=== PATIENT | female | born 1955 | race Caucasian/White ===

== ENCOUNTER → 2018-09-12 | Outpatient (CLI) | payer OTHER, SELFPAY ==
[2018-09-11 10:25] VITALS: BMI 38.0
[2018-09-12 12:02] LABS: Absolute Lymphocyte Count 2.69 X10^3/ul (0.83-4.51); Absolute Neutrophil Count 3.4 X10^3/uL (2.0-7.7); Basophil# 0.03 X10^3/uL; Basophil% 0.4 % (0-1); Eosinophil# 0.13 X10^3/uL; Eosinophils% 1.9 % (0-5); Hematocrit 43.4 % (37-47); Hemoglobin 14.1 g/dl (12.0-15.0); Lymphocyte # 2.69 X10^3/ul (4.0); Lymphocyte % 39.1 % (19-41); Mean Corp Hgb Conc 32.5 g/gl (32-36); Mean Corpuscular Hgb 28.7 pg (27.0-32.0); Mean Corpuscular Volume 88.2 fL (81-99); Mean Platelet Vol. 10.7 fl (6.2-12.0); Monocyte% 8.7 % (0-10); Neutrophil # 3.41 X10^3/uL (2.7-7.7); Neutrophil % 49.6 % (47-70); Platelet Count 244 K/mm3 (150-450); RBC Distribution Width SD 41.6 fl (35.1-43.9); Red Blood Count 4.92 M/mm3 (4.2-5.4); White Blood Count 6.9 K/mm3 (4.4-11.0)
[2018-09-12 12:10] LABS: POSITIVE COUNT NO; POSITIVE DIFFERENTIAL NO; POSITIVE MORPHOLOGY NO
[2018-09-12 12:31] LABS: ALB/GLOB Ratio 0.9 RATIO (0.9-2.4); AST(SGOT) 44 U/L (15-37); Alanine Aminotransfer ALT/SGPT 70 U/L (13-56); Albumin, Serum 3.7 g/dL (3.2-5.0); Alkaline Phosphatase 68 U/L (45-117); Anion Gap 5 (5-15); BUN 16 mg/dL (7-18); BUN/Creat Ratio 19.8 RATIO (10-20); Calcium,Total 8.9 mg/dL (8.5-10.1); Chloride 104 mmol/L (98-107); Cholesterol 159 mg/dL (200); Creatinine, Serum 0.81 mg/dL (0.55-1.02); EST Glomerular Filtration Rate 76 mL/min (>60); Est Glom Filt Rate - Afr Amer 92 mL/min (>60); Globulin 3.9 g/dL (2.2-4.2); Glucose 234 mg/dL (74-106); Protein, Total 7.6 g/dL (6.4-8.2); Sodium Level 138 mmol/L (136-145); Triglycerides 162 mg/dL; Very Low Density Lipoprotein 32 mg/dL (5-40)
[2018-09-12 12:32] LABS: High Density Lipoprotein 44 mg/dL
[2018-09-12 12:45] LABS: Microalbumin,Random Urine 35.3 mg/L (NO RANGE EST.)
[2018-09-12 14:04] LABS: Hemoglobin A1c 8.2 % (4.2-6.3)
== END | disposition home or self-care (01) ==
LOC: BIMLAB 08:30
PROVIDERS: Family Provider Internal Medicine; PCP Internal Medicine; Visit Provider Internal Medicine
DX: E11.9 Type 2 diabetes mellitus without complications (principal)
CPT/HCPCS: 36415; 80053; 80061; 82043; 82570; 83036; 85025

== ENCOUNTER → 2018-09-15 | Outpatient (CLI) | payer OTHER, SELFPAY ==
[2018-09-11 10:25] VITALS: BMI 38.0
--- NOTE | 2018-09-15 08:01 | US_ITS ---
STUDY: ABDOMINAL ULTRASOUND - RIGHT UPPER QUADRANT REASON FOR VISIT: Female, 63 years old. Fatty liver. TECHNIQUE: Ultrasound evaluation of the right upper quadrant was performed with real-time and static hernandez-scale imaging. TECHNICAL QUALITY: Limited. Examination limited due to obesity. COMPARISON: Report only of ultrasound of the liver performed March 11, 2015 demonstrating fatty infiltration of the liver. FINDINGS: Liver: The liver measures 15.8 cm. There is increased echogenicity consistent with fatty infiltration. The bile ducts are within normal limits. There is hepatic color flow. The direction of portal flow is hepatopetal. There is no demonstrated mass lesion. Gallbladder: Normal distended gallbladder. The gallbladder wall measures 2.6 mm. There is a negative sonographic Joyce's sign. There is no pericholecystic fluid. There are no gallstones. Common Bile Duct (C.B.D.): The common bile duct measures 4.7 mm. Pancreas: Normal size of the head, body and tail of the pancreas. There is normal echogenicity of the pancreas. There is no demonstrated pancreatic mass or cyst. Right Kidney: Normal size of the right kidney. The right kidney measures 13.5 x 6.8 x 4.3 cm. Normal renal cortex. The right cortex measures 1.2 cm. There is no demonstrated renal mass or cyst. There is no right hydronephrosis. US/Liver IMPRESSION: There is diffuse increased hepatic echogenicity without sonographically evident discrete mass or cyst. This is a nonspecific finding, however most often due to fatty infiltration. Technically limited exam secondary to patient body habitus. Electronically Signed: Mathieu Grande MD at 14:00 EDT , Service support ,
== END | disposition home or self-care (01) ==
PROVIDERS: Family Provider Internal Medicine; PCP Internal Medicine; Referring Provider Internal Medicine; Visit Provider Internal Medicine
DX: K76.0 Fatty (change of) liver, not elsewhere classified (principal)
CPT/HCPCS: 76705

== ENCOUNTER → 2018-12-07 | Outpatient (CLI) | payer OTHER, SELFPAY ==
[2018-09-11 10:25] VITALS: BMI 38.0
[2018-12-07 12:29] LABS: ALB/GLOB Ratio 1.1 RATIO (0.9-2.4); AST(SGOT) 36 U/L (15-37); Alanine Aminotransfer ALT/SGPT 65 U/L (13-56); Albumin, Serum 3.7 g/dL (3.2-5.0); Alkaline Phosphatase 72 U/L (45-117); Anion Gap 7 (5-15); BUN 16 mg/dL (7-18); BUN/Creat Ratio 21.9 RATIO (10-20); Calcium,Total 8.6 mg/dL (8.5-10.1); Chloride 106 mmol/L (98-107); Creatinine, Serum 0.73 mg/dL (0.55-1.02); EST Glomerular Filtration Rate 86 mL/min (>60); Est Glom Filt Rate - Afr Amer 104 mL/min (>60); Globulin 3.4 g/dL (2.2-4.2); Glucose 204 mg/dL (74-106); Potassium 4.6 mmol/L (3.5-5.1); Protein, Total 7.1 g/dL (6.4-8.2); Sodium Level 141 mmol/L (136-145)
[2018-12-07 12:41] LABS: Hemoglobin A1c 7.8 % (4.2-6.3)
== END | disposition home or self-care (01) ==
LOC: BIMLAB 08:40
PROVIDERS: Nurse Practitioner Family; Family Provider Internal Medicine; PCP Internal Medicine; Visit Provider Internal Medicine
DX: E11.9 Type 2 diabetes mellitus without complications (principal)
CPT/HCPCS: 36415; 80053; 83036

== ENCOUNTER → 2019-03-16 08:22 | Outpatient (CLI) | payer OTHER, SELFPAY ==
[2019-03-12 08:17] VITALS: BMI 38.0
--- NOTE | 2019-03-16 08:24 | EKG12_ITS ---
Test Reason : Blood Pressure : / mmHG Vent. Rate : 084 BPM Atrial Rate : 084 BPM P-R Int : 124 ms QRS Dur : 084 ms QT Int : 366 ms P-R-T Axes : 053 028 050 degrees QTc Int : 432 ms Normal sinus rhythm Normal ECG Confirmed by RIOS MOHAMUD, LANA ([id number]), news videotape editor MARLA BENNETT ([id number]) on 03/19/2019 9:42:22 AM Referred By: Dalia Yuan Confirmed By:LANA NATION MD
== END ==
PROVIDERS: Family Provider Internal Medicine; PCP Internal Medicine; Referring Provider Internal Medicine; Visit Provider Internal Medicine
DX: E11.9 Type 2 diabetes mellitus without complications (principal)
CPT/HCPCS: 93005

== ENCOUNTER → 2019-04-17 07:49 | Outpatient (CLI) | payer OTHER, SELFPAY ==
[2019-03-12 08:17] VITALS: BMI 38.0
[2019-04-09 10:44] VITALS: BMI 38.0
--- NOTE | 2019-04-17 07:51 | BI_ITS ---
MAMMOGRAPHY - BILATERAL SCREENING REASON FOR EXAM: Female, 63 years old. Routine annual screening examination. PERTINENT HISTORY: Sister with breast cancer. History of bilateral breast reduction surgery. TECHNIQUE: Digital bilateral breast maxine (3D mammographic acquisition) in the CC and MLO projections. 2-D mediolateral oblique (MLO) and craniocaudad (CC) views of both breasts were obtained. CAD: Full Field Digital Mammography with Computer Added Detection was performed. COMPARISON: Comparison is made with prior operative examination dated April 14, 2018. FINDINGS: Breast Composition: There are scattered areas of fibroglandular density. There are no dominant masses or suspicious calcifications. There is a 9 mm x 9 mm well-defined nodule in the retroareolar region of the left breast. This appears to have a central lucency suggestive of a small lymph node. This is unchanged. Correlation with ultrasound is recommended. No other significant abnormalities are identified. There has been no significant change since the prior study. BI/SCREEN MAMM (CAD) W/MAXINE BILAT IMPRESSION: Stable bilateral screening mammogram. Ultrasound of the left retroareolar nodular density is recommended for further evaluation. ASSESSMENT CATEGORY: BIRADS Category 0: Incomplete. Need additional imaging evaluation. A letter regarding these results will be sent to the patient by the facility within 30 days. Approximately 10% of breast cancers are not detected by mammography. A normal mammogram should not delay biopsy of a clinically suspicious abnormality. [id number] Electronically Signed: Ruebn Cuevas, at 13:10 EST , Service support ,
== END ==
PROVIDERS: Family Provider Internal Medicine; PCP Internal Medicine; Referring Provider Internal Medicine; Visit Provider Internal Medicine
DX: Z12.31 Encounter for screening mammogram for malignant neoplasm of breast (principal)
CPT/HCPCS: 77063; 77067

== ENCOUNTER → 2019-05-01 07:48 | Outpatient (CLI) | payer OTHER, SELFPAY ==
[2019-04-09 10:44] VITALS: BMI 38.0
--- NOTE | 2019-05-01 07:49 | US_ITS ---
STUDY: ULTRASOUND BREAST - LEFT REASON FOR EXAM: Female, 63 years old. Abnormal screening mammogram. TECHNIQUE: Axial and longitudinal images of the LEFT breast were performed with a high resolution ultrasound transducer. # OF IMAGES: 36 COMPARISON: Comparison is made with prior mammogram dated April 17, 2019. FINDINGS: LEFT Breast: In the retroareolar region of the left breast, there is an 8 mm x 8 mm x 4 mm slightly indistinct hypoechoic nodule. A biopsy is recommended for further evaluation. US/Breast Limited Unilateral IMPRESSION: There is an 8mm by 8mm by 4 mm slightly irregular hypoechoic nodule in the retroareolar region of the left breast. A biopsy is recommended for further evaluation. ASSESSMENT CATEGORY: BIRADS Category 4: Suspicious - Biopsy Should Be Considered. A letter regarding these results will be sent to the patient by the facility within 30 days. Electronically Signed: Ruben Cuevas, at 14:28 EST , Service support ,
== END ==
PROVIDERS: Family Provider Internal Medicine; PCP Internal Medicine; Referring Provider Internal Medicine; Visit Provider Internal Medicine
DX: N63.42 Unspecified lump in left breast, subareolar (principal)
CPT/HCPCS: 76642

== ENCOUNTER → 2019-05-11 12:17 | Outpatient (CLI) | payer OTHER, SELFPAY ==
[2019-05-04 09:11] VITALS: BMI 38.0
--- NOTE | 2019-05-11 12:17 | US_ITS ---
STUDY: ULTRASOUND BREAST - LEFT REASON FOR EXAM: Female, 64 years old. Left breast ultrasound of biopsy of left breast lesion. TECHNIQUE: Axial and longitudinal images of the LEFT breast were performed with a high resolution ultrasound transducer. # OF IMAGES: 24 COMPARISON: Left breast ultrasound dated May 01, 2019. FINDINGS: LEFT Breast: Ultrasound guidance was provided for Dr. De Jesus from to perform the biopsy. After the first pass, the lesion disappeared and most likely represented a cyst. A clip was left at the 6:00 position 2 cm from the nipple. US/US Breast Biopsy 1st Lesion IMPRESSION: Lesion which disappeared after initial first biopsy pass. ASSESSMENT CATEGORY: BIRADS Category 2: Benign. A letter regarding these results will be sent to the patient by the facility within 30 days. Electronically Signed: Rudy Gonzalez MD at 13:13 EST , Service support ,
--- NOTE | 2019-05-11 13:00 | BRBX_PTH ---
PATIENT: CONNER LARSEN LOC: OPUS U#:[id number] AGE/SX: 69/F ROOM: RE05/11/[address]: Dr. Elvira Puentes MD : [id number] BED: DIS: SPEC #: [id number] RECD: 05/11/19 13:46 STATUS: SANDRINE REQ #: [id number] SAAD: 05/11/19 13:[address]: Elvira Puentes DEPT: SURGICAL PATHOLOGY RECD BY: Elaine Cool ENTERED: 05/11/19 14:11 SP TYPE: BREAST BX OTHR DR: Dr. Dalia Yuan MD Tissues: Left breast, NOS Procedures: Surgery Specimen Level IV HEADER OPERATION: Left breast biopsy PRE-OP DIAGNOSIS: Left breast nodule TISSUE SUBMITTED: Left breast nodule ISCHEMIC TIME: 1 minute FIXATION TIME: 55 hours MICROSCOPIC DIAGNOSIS Left breast nodule, core biopsy: Fibrocystic change with associated focal microcalcifications. No evidence of malignancy. AM:andrew 05/14/19 MICROSCOPIC DESCRIPTION Slides are reviewed. GROSS DESCRIPTION Received in fixative is one container labeled with the patient's name and designated left breast nodule. The specimen consists of multiple irregular and elongated fragments of hubbard-yellow soft tissue that in aggregate measure 2 x 1.5 x 0.1 cm. The specimen is totally submitted in one cassette. / AM:andrew 05/11/19 TC:5 CPT: 05568
--- NOTE | 2019-05-11 13:04 | OP.PCM_ITS ---
Report of Operation Date of Procedure: 05/11/19 Pre-Operative Diagnosis: Left breast mass Post-Operative Diagnosis: Same Surgery/Procedure Performed:: Ultrasound-guided left breast biopsy Type of Anesthesia:: Local Specimen's removed: Left breast mass Estimated Blood Loss (mL): minimal Description of Procedure: Procedure: ultrasound-guided core biopsy Indications: 64 year-old female with hypoechoic nodule at 6 o'clock in the left breast 2 centimeters from the nipple. Risk benefits were discussed the patient and she elected to proceed with ultrasound guided core biopsy with clip placement Description of procedure: Patient was brought into the ultrasound room in the left breast was marked. A timeout was completed verifying correct patient, procedure, site, specially, prior to beginning procedure. The left breast was prepped and draped in usual sterile fashion and using local anesthesia was obtained with 1% lidocaine with epi. The lesion was located with the ultrasound. Small incision was made with 11 blade to introduced the mammotome through the skin. Under ultrasound guidance multiple core samples were obtained using then 13-gauge mammotome and sent in formalin for pathology. The mammotome mammostar clip was then deployed into the biopsy cavity under ultrasound guidance and a picture was taken. Upon completion procedure hemostasis was obta ined and a Steri-Strip and OpSite were placed. Patient was then taken to the mammography suite for clip verification. The clip was verified. The patient tolerated the procedure well and was discharged from the breast imaging department good condition. complications: none - Complications none
== END ==
PROVIDERS: Family Provider Internal Medicine; PCP Internal Medicine; Referring Provider Surgery; Visit Provider Surgery
DX: N63.20 Unspecified lump in the left breast, unspecified quadrant (principal)
CPT/HCPCS: 19083; 88305

== ENCOUNTER → 2019-06-28 08:47 | Outpatient (CLI) | payer OTHER, SELFPAY ==
[2019-05-04 09:11] VITALS: BMI 38.0
[2019-06-28 12:53] LABS: Hemoglobin A1c 7.7 % (4.2-6.3)
[2019-06-28 12:58] LABS: Microalbumin,Random Urine 31.6 mg/L (NO RANGE EST.); Microalbumin:Creatinine Ratio 20.7 mg/g CRE (<30 mg/g CRE)
[2019-06-28 12:59] LABS: AST(SGOT) 36 U/L (15-37); Alanine Aminotransfer ALT/SGPT 68 U/L (13-56); Albumin, Serum 3.7 g/dL (3.2-5.0); Alkaline Phosphatase 73 U/L (45-117); Anion Gap 5 (5-15); BUN 14 mg/dL (7-18); BUN/Creat Ratio 16.9 RATIO (10-20); Calcium,Total 9.8 mg/dL (8.5-10.1); Chloride 106 mmol/L (98-107); Creatinine, Serum 0.83 mg/dL (0.55-1.02); EST Glomerular Filtration Rate 74 mL/min (>60); Est Glom Filt Rate - Afr Amer 89 mL/min (>60); Globulin 3.7 g/dL (2.2-4.2); Glucose 198 mg/dL (74-106); Potassium 4.8 mmol/L (3.5-5.1); Protein, Total 7.4 g/dL (6.4-8.2); Sodium Level 139 mmol/L (136-145)
== END ==
PROVIDERS: PCP Internal Medicine; Referring Provider Internal Medicine; Visit Provider Internal Medicine
DX: E11.9 Type 2 diabetes mellitus without complications (principal)
CPT/HCPCS: 36415; 80053; 82043; 82570; 83036

== ENCOUNTER → 2019-09-28 | Outpatient (CLI) | payer OTHER, SELFPAY ==
[2019-07-02 10:05] VITALS: BMI 38.0
[2019-09-28 11:12] LABS: Absolute Lymphocyte Count 3.42 X10^3/uL (0.83-4.51); Absolute Neutrophil Count 3.5 X10^3/uL (2.0-7.7); Basophil# 0.06 X10^3/uL; Basophil% 0.8 % (0-1); Eosinophil# 0.12 X10^3/uL; Eosinophils% 1.6 % (0-5); Hematocrit 41.6 % (37-47); Hemoglobin 13.6 g/dL (12.0-15.0); Lymphocyte # 3.42 X10^3/ul (4.0); Lymphocyte % 44.2 % (19-41); Mean Corp Hgb Conc 32.7 g/dL (32-36); Mean Corpuscular Hgb 29.8 pg (27.0-32.0); Mean Corpuscular Volume 91.2 fL (81-99); Mean Platelet Vol. 10.4 fl (6.2-12.0); Monocyte# 0.57 X10^3/uL; Monocyte% 7.4 % (0-10); NRBC Flagged by Analyzer 0 % (0-5); Neutrophil # 3.53 X10^3/uL (2.7-7.7); Neutrophil % 45.5 % (47-70); Platelet Count 228 K/mm3 (150-450); RBC Distribution Width CV 12.3 % (11.6-14.6); Red Blood Count 4.56 M/mm3 (4.2-5.4); White Blood Count 7.7 K/mm3 (4.4-11.0)
[2019-09-28 11:30] LABS: ALB/GLOB Ratio 0.9 RATIO (0.9-2.4); AST(SGOT) 46 U/L (15-37); Alanine Aminotransfer ALT/SGPT 82 U/L (13-56); Albumin, Serum 3.6 g/dL (3.2-5.0); Alkaline Phosphatase 76 U/L (45-117); Anion Gap 7 (5-15); BUN 15 mg/dL (7-18); Calcium,Total 9.1 mg/dL (8.5-10.1); Chloride 106 mmol/L (98-107); Cholesterol 154 mg/dL (200); Creatinine, Serum 0.79 mg/dL (0.55-1.02); EST Glomerular Filtration Rate 78 mL/min (>60); Est Glom Filt Rate - Afr Amer 95 mL/min (>60); Globulin 3.8 g/dL (2.2-4.2); Glucose 210 mg/dL (74-106); High Density Lipoprotein 46 mg/dL; Potassium 4.8 mmol/L (3.5-5.1); Protein, Total 7.4 g/dL (6.4-8.2); Sodium Level 141 mmol/L (136-145); Triglycerides 150 mg/dL; Very Low Density Lipoprotein 30 mg/dL (5-40)
[2019-09-28 12:05] LABS: Hemoglobin A1c 8.4 % (4.2-6.3)
== END | disposition home or self-care (01) ==
LOC: LABSPEC 10:41
PROVIDERS: PCP Internal Medicine; Referring Provider Internal Medicine; Visit Provider Internal Medicine
DX: E11.9 Type 2 diabetes mellitus without complications (principal); K76.0 Fatty (change of) liver, not elsewhere classified; J45.909 Unspecified asthma, uncomplicated
CPT/HCPCS: 80053; 80061; 83036; 85025

== ENCOUNTER → 2020-01-07 09:07 | Outpatient (CLI) | payer OTHER, SELFPAY ==
[2020-01-07 08:23] VITALS: BMI 38.0
[2020-01-07 12:34] LABS: ALB/GLOB Ratio 0.9 RATIO (0.9-2.4); AST(SGOT) 50 U/L (15-37); Alanine Aminotransfer ALT/SGPT 72 U/L (13-56); Albumin, Serum 3.7 g/dL (3.2-5.0); Alkaline Phosphatase 83 U/L (45-117); Anion Gap 6 (5-15); BUN 12 mg/dL (7-18); BUN/Creat Ratio 17.4 RATIO (10-20); Calcium,Total 9.3 mg/dL (8.5-10.1); Chloride 105 mmol/L (98-107); Creatinine, Serum 0.69 mg/dL (0.55-1.02); EST Glomerular Filtration Rate 91 mL/min (>60); Est Glom Filt Rate - Afr Amer 110 mL/min (>60); Globulin 3.9 g/dL (2.2-4.2); Glucose 211 mg/dL (74-106); Potassium 4.5 mmol/L (3.5-5.1); Protein, Total 7.6 g/dL (6.4-8.2); Sodium Level 138 mmol/L (136-145)
[2020-01-07 12:57] LABS: Microalbumin:Creatinine Ratio 27.6 mg/g CRE (<30 mg/g CRE)
== END ==
PROVIDERS: PCP Internal Medicine; Visit Provider Internal Medicine
DX: E11.9 Type 2 diabetes mellitus without complications (principal); K76.0 Fatty (change of) liver, not elsewhere classified
CPT/HCPCS: 36415; 80053; 82043; 82570

== ENCOUNTER → 2020-03-25 17:23 | Outpatient (CLI) | payer OTHER, SELFPAY ==
[2020-01-07 08:23] VITALS: BMI 38.0
== END ==
PROVIDERS: PCP Internal Medicine; Referring Provider Nurse Practitioner Family; Visit Provider Nurse Practitioner Family
DX: U07.1 COVID-19 (principal); R05 Cough
CPT/HCPCS: 87635; C9803; U0003

== ENCOUNTER → 2020-04-29 09:00 | Outpatient (CLI) | payer OTHER, SELFPAY ==
[2020-04-29 12:20] LABS: Absolute Lymphocyte Count 3.16 X10^3/uL (0.83-4.51); Absolute Neutrophil Count 3.7 X10^3/uL (2.0-7.7); Basophil# 0.04 X10^3/uL; Basophil% 0.5 % (0-1); Eosinophil# 0.12 X10^3/uL; Eosinophils% 1.6 % (0-5); Hematocrit 44.3 % (37-47); Hemoglobin 13.8 g/dL (12.0-15.0); Lymphocyte # 3.16 X10^3/ul (4.0); Lymphocyte % 41.5 % (19-41); Mean Corp Hgb Conc 31.2 g/dL (32-36); Mean Corpuscular Hgb 28.8 pg (27.0-32.0); Mean Corpuscular Volume 92.3 fL (81-99); Mean Platelet Vol. 10.6 fl (6.2-12.0); Monocyte# 0.56 X10^3/uL; Monocyte% 7.3 % (0-10); NRBC Flagged by Analyzer 0 % (0-5); Neutrophil % 48.6 % (47-70); Platelet Count 259 K/mm3 (150-450); RBC Distribution Width CV 13.2 % (11.6-14.6); RBC Distribution Width SD 44.5 fl (35.1-43.9); White Blood Count 7.6 K/mm3 (4.4-11.0)
[2020-04-29 12:33] LABS: ALB/GLOB Ratio 0.9 RATIO (0.9-2.4); AST(SGOT) 54 U/L (15-37); Alanine Aminotransfer ALT/SGPT 73 U/L (13-56); Albumin, Serum 3.7 g/dL (3.2-5.0); Alkaline Phosphatase 83 U/L (45-117); Anion Gap 5 (5-15); BUN 14 mg/dL (7-18); Calcium,Total 9.5 mg/dL (8.5-10.1); Chloride 106 mmol/L (98-107); Creatinine, Serum 0.82 mg/dL (0.55-1.02); EST Glomerular Filtration Rate 74 mL/min (>60); Est Glom Filt Rate - Afr Amer 90 mL/min (>60); Globulin 4.2 g/dL (2.2-4.2); Glucose 215 mg/dL (74-106); Potassium 4.9 mmol/L (3.5-5.1); Protein, Total 7.9 g/dL (6.4-8.2); Sodium Level 138 mmol/L (136-145)
== END ==
PROVIDERS: PCP Internal Medicine; Referring Provider Internal Medicine; Visit Provider Internal Medicine
DX: E11.9 Type 2 diabetes mellitus without complications (principal)
CPT/HCPCS: 36415; 80053; 85025

== ENCOUNTER → 2020-05-06 15:53 | Outpatient (CLI) | payer OTHER, SELFPAY ==
[2020-01-07 08:23] VITALS: BMI 38.0
--- NOTE | 2020-05-06 15:54 | BI_ITS ---
MAMMOGRAPHY - BILATERAL SCREENING REASON FOR EXAM: Female, 65 years old. Routine annual screening examination. PERTINENT HISTORY: Sister with breast cancer. History of prior bilateral breast reduction surgery. Prior left ultrasound-guided breast biopsy. TECHNIQUE: Digital bilateral breast maxine (3D mammographic acquisition) in the CC and MLO projections. 2-D mediolateral oblique (MLO) and craniocaudad (CC) views of both breasts were obtained. CAD: Full Field Digital Mammography with Computer Added Detection was performed. COMPARISON: Comparison is made with prior study dated 04/17/2019 and 05/11/2019. FINDINGS: Breast Composition: There are scattered areas of fibroglandular density. There are no dominant masses or suspicious calcifications. A tissue clip marker is seen in the deep central slightly medial portion of the left breast. Stable benign-appearing bilateral axillary lymph nodes. No other significant abnormalities are identified. There has been no significant change since the prior study. BI/SCREEN MAMM (CAD) W/MAXINE BILAT IMPRESSION: Stable bilateral screening mammogram. Yearly follow-up mammogram recommended. (A) ASSESSMENT CATEGORY: BIRADS Category 2: Benign. A letter regarding these results will be sent to the patient by the facility within 30 days. Approximately 10% of breast cancers are not detected by mammography. A normal mammogram should not delay biopsy of a clinically suspicious abnormality. [id number] Electronically Signed: Ruben Cuevas, at 8:10 EST , Service support ,
== END ==
PROVIDERS: PCP Internal Medicine; Referring Provider Internal Medicine; Visit Provider Internal Medicine
DX: Z12.31 Encounter for screening mammogram for malignant neoplasm of breast (principal)
CPT/HCPCS: 77063; 77067

== ENCOUNTER → 2021-03-26 | Outpatient (CLI) | payer BC, SELFPAY ==
[2021-03-26 16:10] LABS: Mucous, Urine 0 SEEN /hpf (<or=2+)
[2021-03-26 16:34] LABS: Color, Urine Yellow (Yellow); Glucose, Dipstick 100 mg/dl (Normal); Ketone-Dipstick Negative (Negative); Leukocyte Esterase-Dipstick 100 /ul (Negative); Nitrite-Dipstick Negative (Negative); Occult Blood-Urine 10 /ul (Negative); Protein-Dipstick 15 mg/dl (Negative); Specific Gravity, Urine 1.025 (1.002-1.030); Urine Bilirubin Dipstick Negative (Negative); Urine Clarity Sl. Cloudy (Clear); Urine Urobilinogen Normal (Normal)
[2021-03-26 16:45] LABS: Bacteria 1+ /hpf (None Seen); Red Blood Cells-Urine 0-5 SEEN /hpf (0-5); Squamous Epithelial Cells - UA 5-10 SEEN /hpf (5-10); White Blood Cells 5-10 SEEN /hpf (0-5)
== END | disposition home or self-care (01) ==
LOC: LABSPEC 16:09
PROVIDERS: PCP Internal Medicine; Referring Provider Internal Medicine; Visit Provider Internal Medicine
DX: R10.2 Pelvic and perineal pain (principal)
CPT/HCPCS: 81001; 87086; 87088; 87186

== ENCOUNTER → 2021-03-31 11:25 | Outpatient (CLI) | payer BC, SELFPAY ==
[2021-03-31 12:51] LABS: Absolute Lymphocyte Count 5.06 X10^3/uL (0.83-4.51); Absolute Neutrophil Count 3.2 X10^3/uL (2.0-7.7); Basophil# 0.05 X10^3/uL; Basophil% 0.5 % (0-1); Eosinophil# 0.15 X10^3/uL; Eosinophils% 1.6 % (0-5); Hematocrit 44.5 % (37-47); Hemoglobin 14.6 g/dL (12.0-15.0); Lymphocyte # 5.06 X10^3/ul (0.83-4.51); Lymphocyte % 55.5 % (19-41); Mean Corp Hgb Conc 32.8 g/dL (32-36); Mean Corpuscular Hgb 29.6 pg (27.0-32.0); Mean Corpuscular Volume 90.3 fL (81-99); Mean Platelet Vol. 10.4 fl (6.2-12.0); Monocyte# 0.65 X10^3/uL; Monocyte% 7.1 % (0-10); NRBC Flagged by Analyzer 0 % (0-5); Neutrophil # 3.18 X10^3/uL (2.7-7.7); Neutrophil % 35.1 % (47-70); POSITIVE DIFFERENTIAL YES; Platelet Count 245 K/mm3 (150-450); RBC Distribution Width SD 39.8 fl (35.1-43.9); Red Blood Count 4.93 M/mm3 (4.2-5.4); White Blood Count 9.1 K/mm3 (4.4-11.0)
[2021-03-31 12:57] LABS: Differential Indicated SCAN CRITERIA MET
[2021-03-31 13:41] LABS: BUN 14 mg/dL (7-18); Creatinine, Serum 0.67 mg/dL (0.55-1.02); Glucose 171 mg/dL (74-106)
[2021-03-31 13:42] LABS: ALB/GLOB Ratio 0.9 RATIO (0.9-2.4); AST(SGOT) 26 U/L (15-37); Alanine Aminotransfer ALT/SGPT 46 U/L (13-56); Alkaline Phosphatase 80 U/L (45-117); Anion Gap 10 (5-15); BUN/Creat Ratio 20.9 RATIO (10-20); Calcium,Total 9.2 mg/dL (8.5-10.1); Chloride 104 mmol/L (98-107); Cholesterol 161 mg/dL (200); EST Glomerular Filtration Rate 94 mL/min (>60); Est Glom Filt Rate - Afr Amer 114 mL/min (>60); Globulin 4.3 g/dL (2.2-4.2); High Density Lipoprotein 53 mg/dL; Potassium 3.9 mmol/L (3.5-5.1); Protein, Total 8.3 g/dL (6.4-8.2); Sodium Level 138 mmol/L (136-145); Triglycerides 113 mg/dL; Very Low Density Lipoprotein 23 mg/dL (5-40)
[2021-03-31 14:14] LABS: Hemoglobin A1c 8.4 % (3.8-5.6)
[2021-03-31 16:20] LABS: Microalbumin,Random Urine 27.8 mg/L (NO RANGE EST.); Microalbumin:Creatinine Ratio 26.5 mg/g CRE (<30 mg/g CRE)
== END ==
PROVIDERS: PCP Internal Medicine; Referring Provider Internal Medicine; Visit Provider Internal Medicine
DX: E11.9 Type 2 diabetes mellitus without complications (principal)
CPT/HCPCS: 36415; 80053; 80061; 82043; 82570; 83036; 85025

== ENCOUNTER 2021-06-03 10:00 | Outpatient (CLI) | payer MEDICARE, BC, SELFPAY ==
--- NOTE | 2021-06-03 10:05 | BI_ITS ---
MAMMOGRAPHY - BILATERAL SCREENING REASON FOR EXAM: Female, 66 years old. Routine annual screening examination. PERTINENT HISTORY: Sister with breast cancer. Prior left ultrasound-guided breast biopsy. History of prior bilateral breast reduction surgery. TECHNIQUE: Digital bilateral breast maxine (3D mammographic acquisition) in the CC and MLO projections. 2-D mediolateral oblique (MLO) and craniocaudad (CC) views of both breasts were obtained. CAD: Full Field Digital Mammography with Computer Added Detection was performed. COMPARISON: Comparison is made with prior study dated 05/06/2020 and 04/17/2019. FINDINGS: Breast Composition: There are scattered areas of fibroglandular density. There are no dominant masses or suspicious calcifications. A tissue clip marker is once again seen in the deep central slightly medial portion of the left breast. Stable small benign appearing bilateral axillary nodes. No other significant abnormalities are identified. There has been no significant change since the prior study. BI/SCRN MAMM (CAD)W/MAXINE BILAT IMPRESSION: Stable bilateral screening mammogram. Yearly follow-up mammogram recommended. (A) ASSESSMENT CATEGORY: BIRADS Category 2: Benign. A letter regarding these results will be sent to the patient by the facility within 30 days. Approximately 10% of breast cancers are not detected by mammography. A normal mammogram should not delay biopsy of a clinically suspicious abnormality. [id number] Electronically Signed: Ruben Cuevas MD at 11:14 EST , Service support ,
--- NOTE | 2021-06-03 10:06 | BD_ITS ---
STUDY: DUAL ENERGY X-RAY ABSORPTIOMETRY / DXA REASON FOR EXAM: Female, 66 years old. Post Menopausal TECHNIQUE: Bone Mineral Density (BMD) measurements of lumbar spine and bilateral hips were obtained. COMPARISON: None. FINDINGS: Lumbar Spine (L1-L4): g/cm2 (0.974) / T-score (-0.7) / Z-score (1.1) Findings are suggestive of normal bone density with a low fracture risk. Left Femur Total: g/cm2 (0.930) / T-score (-0.1) / Z-score (1.1) Left Femoral Neck: g/cm2 (0.683) / T-score (-1.5) / Z-score (0.0) Right Femur Total: g/cm2 (0.970) / T-score (0.2) / Z-score (1.5) Right Femoral Neck: g/cm2 (0.735) / T-score (-1.0) / Z-score (0.5) BD/Dexa Bone Density Study IMPRESSION: The patient is considered osteopenic as outlined below according to World [employer] Organization (WHO) criteria with a low fracture risk. Reference Information: The T-score is the number of standard deviations above or below the standard which is normal for young adults at their peak bone mineral density. The World Health Organization (WHO) interprets the T-scores as follows: Above -1 Normal bone density Between -1 and -2.5 Osteopenia Equal to / or below -2.5 Osteoporosis As a practical clinical guideline, osteopenia may be graded as follows: Mild -1 through -1.5 Moderate -1.6 through -2.0 Severe -2.1 through -2.4 The Z-score is the number of standard deviations above or below age-matched controls. A Z-score of less than -1.5 would be considered abnormal. References: 1. NIH Osteoporosis and Related Bone Diseases www osteo.org 2. International Society for Clinical Densitometry www iscd.org 3. National Osteoporosis Foundation www nof.org Electronically Signed: Ruben Cuevas MD at 15:34 EST , Service support ,
== END 2021-06-03 23:59 | disposition short-term general hospital (02) ==
LOC: OPBD 10:03
PROVIDERS: PCP Internal Medicine; Referring Provider Internal Medicine; Visit Provider Internal Medicine
DX: Z13.820 Encounter for screening for osteoporosis (principal); Z78.0 Asymptomatic menopausal state; Z12.31 Encounter for screening mammogram for malignant neoplasm of breast; Z80.3 Family history of malignant neoplasm of breast
CPT/HCPCS: 77063; 77067; 77080

== ENCOUNTER → 2021-09-23 | Outpatient (CLI) | payer MEDICARE, BC, SELFPAY ==
[2021-09-23 12:48] LABS: AST(SGOT) 24 U/L (15-37); Alanine Aminotransfer ALT/SGPT 41 U/L (13-56); Albumin, Serum 3.5 g/dL (3.2-5.0); Alkaline Phosphatase 61 U/L (45-117); Anion Gap 5 (5-15); BUN 14 mg/dL (7-18); BUN/Creat Ratio 20.1 RATIO (10-20); Calcium,Total 8.9 mg/dL (8.5-10.1); Chloride 106 mmol/L (98-107); EST Glomerular Filtration Rate 90 mL/min (>60); Est Glom Filt Rate - Afr Amer 108 mL/min (>60); Globulin 3.6 g/dL (2.2-4.2); Glucose 157 mg/dL (74-106); Potassium 4.7 mmol/L (3.5-5.1); Protein, Total 7.1 g/dL (6.4-8.2); Sodium Level 139 mmol/L (136-145)
== END | disposition home or self-care (01) ==
LOC: BIMLAB 11:05
PROVIDERS: PCP Internal Medicine; Referring Provider Internal Medicine; Visit Provider Internal Medicine
DX: E11.69 Type 2 diabetes mellitus with other specified complication (principal); I10 Essential (primary) hypertension
CPT/HCPCS: 36415; 80053

== ENCOUNTER 2022-04-05 08:40 | Outpatient (CLI) | payer MEDICARE, BC, SELFPAY ==
[2022-04-05 12:20] LABS: Absolute Neutrophil Count 5.1 X10^3/uL (2.0-7.7); Basophil# 0.07 X10^3/uL; Basophil% 0.4 % (0-1); Eosinophil# 0.17 X10^3/uL; Eosinophils% 1.1 % (0-5); Hematocrit 43.7 % (37-47); Lymphocyte % 61.1 % (19-41); Mean Corpuscular Hgb 29.9 pg (27.0-32.0); Mean Corpuscular Volume 93.2 fL (81-99); Mean Platelet Vol. 10.4 fl (6.2-12.0); Monocyte# 0.76 X10^3/uL; Monocyte% 4.8 % (0-10); NRBC Flagged by Analyzer 0 % (0-5); Neutrophil # 5.06 X10^3/uL (2.7-7.7); Neutrophil % 31.8 % (47-70); POSITIVE DIFFERENTIAL YES; POSITIVE MORPHOLOGY YES; Platelet Count 263 K/mm3 (150-450); RBC Distribution Width CV 12.8 % (11.6-14.6); RBC Distribution Width SD 43.5 fl (35.1-43.9); Red Blood Count 4.69 M/mm3 (4.2-5.4); White Blood Count 15.9 K/mm3 (4.4-11.0)
[2022-04-05 12:29] LABS: Differential Indicated SCAN CRITERIA MET
[2022-04-05 13:05] LABS: Microalbumin,Random Urine 34.3 mg/L (NO RANGE EST.); Microalbumin:Creatinine Ratio 15.2 mg/g CRE (<30 mg/g CRE)
[2022-04-05 13:11] LABS: ALB/GLOB Ratio 0.9 RATIO (0.9-2.4); AST(SGOT) 17 U/L (15-37); Alanine Aminotransfer ALT/SGPT 34 U/L (13-56); Albumin, Serum 3.3 g/dL (3.2-5.0); Alkaline Phosphatase 66 U/L (45-117); Anion Gap 8 (5-15); BUN 21 mg/dL (7-18); BUN/Creat Ratio 26.3 RATIO (10-20); Calcium,Total 8.9 mg/dL (8.5-10.1); Chloride 107 mmol/L (98-107); Cholesterol 156 mg/dL (200); EST Glomerular Filtration Rate 76 mL/min (>60); Est Glom Filt Rate - Afr Amer 92 mL/min (>60); Globulin 3.8 g/dL (2.2-4.2); Glucose 169 mg/dL (74-106); High Density Lipoprotein 56 mg/dL; Potassium 4.3 mmol/L (3.5-5.1); Protein, Total 7.1 g/dL (6.4-8.2); Sodium Level 139 mmol/L (136-145); Triglycerides 140 mg/dL; Very Low Density Lipoprotein 28 mg/dL (5-40)
[2022-04-05 13:18] LABS: Differential Comment SCANNED
[2022-04-05 13:32] LABS: Hemoglobin A1c 7.6 % (3.8-5.6)
== END 2022-04-05 23:59 | disposition home or self-care (01) ==
PROVIDERS: PCP Internal Medicine; Visit Provider Internal Medicine
DX: I10 Essential (primary) hypertension (principal); E11.69 Type 2 diabetes mellitus with other specified complication; E66.9 Obesity, unspecified
CPT/HCPCS: 36415; 80053; 80061; 82043; 82570; 83036; 85025

== ENCOUNTER → 2022-06-04 | Outpatient (CLI) | payer MEDICARE, BC, SELFPAY ==
--- NOTE | 2022-06-04 15:02 | BI_ITS ---
MAMMOGRAPHY - BILATERAL SCREENING REASON FOR EXAM: Female, 67 years old. Routine annual screening examination. PERTINENT HISTORY: Sister with breast cancer. Prior bilateral breast reduction surgery in prior ultrasound guided left breast biopsy. TECHNIQUE: Digital bilateral breast maxine (3D mammographic acquisition) in the CC and MLO projections. 2-D mediolateral oblique (MLO) and craniocaudad (CC) views of both breasts were obtained. CAD: Full Field Digital Mammography with Computer Added Detection was performed. COMPARISON: Comparison is made with prior study dated 06/03/2021 and 05/06/2020. FINDINGS: Breast Composition: There are scattered areas of fibroglandular density. There are no dominant masses or suspicious calcifications. A tissue clip marker is once again seen in the deep central slightly medial aspect of the left breast. No other significant abnormalities are identified. There has been no significant change since the prior study. BI/SCRN MAMM (CAD)W/MAXINE BILAT IMPRESSION: Stable bilateral screening mammogram. Yearly follow-up mammogram recommended. (A) ASSESSMENT CATEGORY: BIRADS Category 2: Benign. A letter regarding these results will be sent to the patient by the facility within 30 days. Approximately 10% of breast cancers are not detected by mammography. A normal mammogram should not delay biopsy of a clinically suspicious abnormality. [id number] Electronically Signed: Ruben Cuevas MD at 8:15 EST ,
== END | disposition home or self-care (01) ==
LOC: OPBI 14:57
PROVIDERS: PCP Internal Medicine; Visit Provider Internal Medicine
DX: Z12.31 Encounter for screening mammogram for malignant neoplasm of breast (principal); Z80.3 Family history of malignant neoplasm of breast
CPT/HCPCS: 77063; 77067

== ENCOUNTER → 2022-07-23 | Outpatient (CLI) | payer MEDICARE, BC, SELFPAY ==
--- NOTE | 2022-07-23 09:16 | RAD_ITS ---
STUDY: X-RAY - RIGHT WRIST REASON FOR EXAM: Female, 67 years old. Right wrist pain after fall. TECHNIQUE: 3 view(s) of the wrist were obtained. COMPARISON: None. FINDINGS: Osteopenia. Mild arthrosis of the radiocarpal articulation. Mild arthrosis of the distal radioulnar articulation. Mild arthrosis of the radial carpal row of the wrist. Moderate arthrosis of the first CMC joint. Normal soft tissues. RAD/Wrist min 3 Views IMPRESSION: Osteopenia with osteoarthritic changes. No acute abnormality, chondrocalcinosis or erosive changes. Electronically Signed: Rudy Gonzalez, at 9:48 EST ,
--- NOTE | 2022-07-23 09:20 | RAD_ITS ---
STUDY: X-RAY - RIGHT HAND REASON FOR EXAM: Female, 67 years old. Fall. Pain. TECHNIQUE: 3 view(s) of the hand. COMPARISON: None. FINDINGS: Normal radiocarpal articulation. Normal distal radioulnar joint. Normal visualized carpal bones. Normal carpal articulations Normal carpometacarpal articulation of the thumb. Normal second through fifth carpometacarpal joints. Normal metacarpi. Normal metacarpophalangeal joint of the thumb. Normal interphalangeal joint of the thumb. Normal proximal and distal phalanges of the thumb. Normal metacarpophalangeal joints of the second through fifth fingers. Normal proximal and distal interphalangeal joints of the second through fifth fingers. Normal phalanges of the second through fifth fingers. The soft tissue structures are unremarkable. RAD/Hand Min 3 Views IMPRESSION: Normal x-ray examination of the hand. Electronically Signed: Rudy Gonzalez, at 15:40 EST ,
== END | disposition home or self-care (01) ==
LOC: MTRAD 09:16
PROVIDERS: PCP Internal Medicine; Referring Provider Internal Medicine; Visit Provider Internal Medicine
DX: M79.641 Pain in right hand (principal); W19.XXXA Unspecified fall, initial encounter; M25.531 Pain in right wrist
CPT/HCPCS: 73110; 73130

== ENCOUNTER 2023-01-12 14:47 | Outpatient (CLI) | payer MEDICARE, BC, SELFPAY ==
[2023-01-12 17:45] LABS: Absolute Lymphocyte Count 6.81 X10^3/uL (0.83-4.51); Absolute Neutrophil Count 3.4 X10^3/uL (2.0-7.7); Basophil# 0.04 X10^3/uL; Basophil% 0.4 % (0-1); Eosinophil# 0.12 X10^3/uL; Eosinophils% 1.1 % (0-5); Hematocrit 41.4 % (37-47); Hemoglobin 13.6 g/dL (12.0-15.0); Lymphocyte # 6.81 X10^3/ul (0.83-4.51); Lymphocyte % 61.2 % (19-41); Mean Corp Hgb Conc 32.9 g/dL (32-36); Mean Corpuscular Hgb 30.3 pg (27.0-32.0); Mean Corpuscular Volume 92.2 fL (81-99); Mean Platelet Vol. 10.6 fl (6.2-12.0); Monocyte# 0.68 X10^3/uL; Monocyte% 6.1 % (0-10); NRBC Flagged by Analyzer 0 % (0-5); Neutrophil # 3.43 X10^3/uL (2.7-7.7); Neutrophil % 30.8 % (47-70); POSITIVE DIFFERENTIAL YES; POSITIVE MORPHOLOGY YES; Platelet Count 249 K/mm3 (150-450); RBC Distribution Width CV 12.7 % (11.6-14.6); RBC Distribution Width SD 42.7 fl (35.1-43.9); Red Blood Count 4.49 M/mm3 (4.2-5.4); White Blood Count 11.1 K/mm3 (4.4-11.0)
[2023-01-12 17:59] LABS: Microalbumin,Random Urine 30.1 mg/L (NO RANGE EST.); Microalbumin:Creatinine Ratio 25.9 mg/g CRE (<30 mg/g CRE)
[2023-01-12 18:04] LABS: Differential Indicated SCAN CRITERIA MET
[2023-01-12 18:06] LABS: Vitamin B12 923 pg/mL (211-911); Vitamin D,25 Hydroxy 47.7 ng/mL
[2023-01-12 18:27] LABS: Atypical Lymphocyte 1+ %; Platelet Estimate ADEQUATE (ADEQ); Reactive Lymphocyte 1+
[2023-01-12 18:28] LABS: Anisocytosis RARE; Macrocytosis RARE; Red Cell Morphology N CHROM NORMAL (NORM C&C)
[2023-01-12 18:47] LABS: AST(SGOT) 39 U/L (15-37); Alanine Aminotransfer ALT/SGPT 59 U/L (13-56); Albumin, Serum 3.9 g/dL (3.2-5.0); Alkaline Phosphatase 77 U/L (45-117); Anion Gap 7 (5-15); BUN 16 mg/dL (7-18); BUN/Creat Ratio 24.4 RATIO (10-20); Calcium,Total 9.4 mg/dL (8.5-10.1); Chloride 108 mmol/L (98-107); Cholesterol 136 mg/dL (200); Creatinine, Serum 0.66 mg/dL (0.55-1.02); EST Glomerular Filtration Rate 96 mL/min (>60); Est Glom Filt Rate - Afr Amer 116 mL/min (>60); Ferritin 80 ng/mL (8-252); Glucose 85 mg/dL (74-106); High Density Lipoprotein 47 mg/dL; Magnesium 1.8 mg/dL (1.6-2.6); Protein, Total 7.9 g/dL (6.4-8.2); Sodium Level 140 mmol/L (136-145); Thyroid Stim Hormone (TSH) 1.35 uIU/mL (0.358-3.74); Triglycerides 149 mg/dL; Very Low Density Lipoprotein 30 mg/dL (5-40)
[2023-01-13 15:34] LABS: Pathologist Review Reviewed
== END 2023-01-12 23:59 | disposition home or self-care (01) ==
LOC: MFPLAB 14:49
PROVIDERS: PCP Family Medicine; Visit Provider Family Medicine
DX: R53.83 Other fatigue (principal); E11.9 Type 2 diabetes mellitus without complications; I10 Essential (primary) hypertension
CPT/HCPCS: 36415; 80053; 80061; 82043; 82306; 82570; 82607; 82728; 83735; 84443; 85025

== ENCOUNTER → 2023-02-23 | Outpatient (CLI) | payer MEDICARE, BC, SELFPAY ==
--- NOTE | 2023-02-23 17:09 | RAD_ITS ---
INDICATION: knee pain EXAMINATION/TECHNIQUE: X-RAY - LEFT XR Knee 3 Views COMPARISON: FINDINGS: SOFT TISSUES: No soft tissue swelling or gas. No radiopaque foreign body. BONES/JOINTS: No acute fracture or subluxation.. Normal alignment. Preservation of the joint space.. No sclerotic or destructive changes observed. RAD/Knee 3 Views IMPRESSION: Negative. Electronically Signed: Quique Bowen DO at 17:53 EDT ,
== END | disposition home or self-care (01) ==
LOC: MTRAD 17:08
PROVIDERS: PCP Family Medicine; Referring Provider Nurse Practitioner Family; Visit Provider Nurse Practitioner Family
DX: M25.562 Pain in left knee (principal)
CPT/HCPCS: 73562

== ENCOUNTER → 2023-08-04 | Outpatient (CLI) | payer MEDICARE, BC, SELFPAY ==
--- NOTE | 2023-08-04 12:49 | BI_ITS ---
MAMMOGRAPHY - BILATERAL SCREENING REASON FOR EXAM: Female, 68 years old. Routine annual screening examination. PERTINENT HISTORY: Sister with breast cancer. History of prior bilateral breast reduction surgery. TECHNIQUE: Digital bilateral breast maxine (3D mammographic acquisition) in the CC and MLO projections. 2-D mediolateral oblique (MLO) and craniocaudad (CC) views of both breasts were obtained. CAD: Full Field Digital Mammography with Computer Added Detection was performed. COMPARISON: Comparison is made with prior study dated December 02, 2022 and June 03, 2021. FINDINGS: Breast Composition: The breasts are almost entirely fatty. There are no dominant masses or suspicious calcifications. Once again, a tissue clip marker is seen in the deep central slightly medial aspect of the left breast. Stable bilateral fat containing axillary lymph nodes. No other significant abnormalities are identified. There has been no significant change since the prior study. BI/SCRN MAMM (CAD)W/MAXINE BILAT IMPRESSION: Stable bilateral screening mammogram. Yearly follow-up mammogram recommended. (A) ASSESSMENT CATEGORY: BIRADS Category 2: Benign. A letter regarding these results will be sent to the patient by the facility within 30 days. Approximately 10% of breast cancers are not detected by mammography. A normal mammogram should not delay biopsy of a clinically suspicious abnormality. [id number] Electronically Signed: Ruben Cuevas MD at 13:57 EDT ,
== END | disposition home or self-care (01) ==
LOC: OPBI 12:48
PROVIDERS: PCP Family Medicine; Referring Provider Family Medicine; Visit Provider Family Medicine
DX: Z12.31 Encounter for screening mammogram for malignant neoplasm of breast (principal); Z80.3 Family history of malignant neoplasm of breast
CPT/HCPCS: 77063; 77067

== ENCOUNTER 2023-09-14 10:30 | Outpatient (RCR) | payer MEDICARE, BC, SELFPAY ==
--- NOTE | 2023-08-04 15:39 | HP.PTEVAL_ITS ---
Patient's Visit Information Visit Information Visit Information: CONNER LARSEN is a 68 year old F referred to Physical Therapy by Leigh Rodriguez DO with a diagnosis of Hip flexor tightness adn L knee pain. Date of Evaluation: 08/04/23 Physical Therapist: Jose Alberto Andrade, DPT, OCS, CSCS Visit Plan Frequency: 3x /Week Duration: 4-6 Weeks Plan: 3x/week for 4 weeks for 1. L knee quad stretching and psoas stretching 2. hip and knee home strenbgth progression 3. Teach gym based LE and UE and core strength to I with list. Subjective Subjective: March last year L knee started hurting lateral and posterior. Doc did x rays and sent to ortho. Has OA behind knee cap. Flared up in cold weather. It has worsened to the point where sitting long makes it hard to stand due to pulling in quad B. Has 4 grandbabies under 3 adn will not stand up with them due to this. Feels unsteady upon arising. Getting off ground with L knee is tough as it hurts, needs to lean on object. Can be on feet all day without much problem but hurts to stand. Sleeping is OK, restless to fall asleep and hard to move in am. Basic aDLs are Ok, hurts sometimes in L knee. No regular ex. Enjoys cooking and can do it. Pain L knee: Pain Intensity (Out of 10): 0 Pain Intensity Range: 0 and 7 Objective Objective: Walks I into PT without pain today. Transfers I chair but protective of L knee. Steps reciprocal with one rail, painful L knee descending. Tender L knee joint line adn patellar movement. AROM L knee 0-130 with pain end range, R knee 0-137 strength 3+ in hips, 4- B knees, some pain R knee ext, 4 ankles. reflexes 2/3 patella and achilles Sensation LE WNL to gross light touch. - ant drawer, varus and valgus L, + patellar grind, - scour. Tightness obvious in quads B L>R, HS min. Balance/Special Test Scores Lower Extremity Functional Score: 48 Goals Goal 1:: I appropriate gym based LE and postural/core strength Goal Time Frame: 4-6 Weeks Goal 2:: Knee L feel 90% better 1/10 at worst. Goal Time Frame: 4-6 Weeks Goal 3:: Get up off the floor with L without knee pain Goal Time Frame: 4-6 Weeks Goal 4:: steps reciprocally with one rail without pain or hesitation Goal Time Frame: 4-6 Weeks Rehabilitation Potential Physical Therapy Diagnosis: pain and lack ROM causing discomfort effecting funciton Rehabilitation Potential: Fair Anticipated Interventions Patient/Client Instruction: Educate patient on: Condition and Plan of Care For the Purpose of:: To decrease pain, To increase ROM, To improve nutrient delivery to tissue, To improve muscle performance and motor function, To increase tolerance to activity/condition/position and To improve ability of physical actions for home/community/work/leisure Therapeutic Exercise to Include: Strength training, Flexibilty training, Gait and locomotor training, Passive ROM and Active ROM For the Purpose of:: To decrease pain, To increase ROM, To improve nutrient d elivery to tissue, To improve muscle performance and motor function and To increase tolerance to activity/condition/position Text: Thank you for the opportunity to evaluate your patient. For Medicare and Medicare HMO plans, please review the plan of care and approve it. It will need to be FAXED BACK to us at [phone] for Medicare purposes. For Medicare only, by signing this I certify the plan of care. Please let me know if there are questions or concerns regarding this plan of care. Physician Signature: Date:
--- NOTE | 2023-11-07 09:15 | HP.PT.NRP ---
Patient Information Patient Information: CONNER LARSEN was seen in my office for initial evaluation on 08/04/23. The following Plan of Care was established for this patient: POC Established Initial Frequency: 3x /Week Initial Duration: 4-6 Weeks Anticipated Interventions Patient/Client Instruction: Educate patient on: Condition and Plan of Care For the Purpose of:: To decrease pain, To increase ROM, To improve nutrient delivery to tissue, To improve muscle performance and motor function, To increase tolerance to activity/condition/position and To improve ability of physical actions for home/community/work/leisure Therapeutic Exercise to Include: Strength training, Flexibilty training, Gait and locomotor training, Passive ROM and Active ROM For the Purpose of:: To decrease pain, To increase ROM, To improve nutrient delivery to tissue, To improve muscle performance and motor function and To increase tolerance to activity/condition/position Last Seen Last Seen: This patient was last seen in our office 09/14/23. Pertinent comments regarding their Physical therapy will appear below: Pt seen 12 visits of POC and was 80% better. she was to f/u 3 weeks later to ensure continued progress but did not. at this point, it has been over 6 weeks and I will discontinue from my care. At this point I will be discontinuing this patient from physical therapy. I would be happy to see this patient again in the future if found appropriate by the physician. Thank you! Jose Alberto Andrade, DPT, OCS, CSCS Balance/Gait/Functional tests Balance/Special Test Scores Lower Extremity Functional Score: 68
== END 2023-09-14 19:00 | disposition home or self-care (01) ==
LOC: PT 10:30
PROVIDERS: PCP Family Medicine; Referring Provider Family Medicine; Visit Provider Family Medicine
DX: M25.562 Pain in left knee (principal); M62.89 Other specified disorders of muscle
CPT/HCPCS: 97110; 97161; 97530

== ENCOUNTER 2024-01-17 10:29 | Emergency (ER) | payer MEDICARE, BC, SELFPAY ==
[2024-01-17 10:30] VITALS: PULSE 70; RESP 19; TEMP 35.3; O2SAT 97
[2024-01-17 10:31] VITALS: BP 139/65; BMI 35.2
--- NOTE | 2024-01-17 12:04 | VDLE_ITS ---
Reason For Study: RLE PAin RIGHT LEFT GSV is normal. CFV is compressible, spontaneous, phasic, CFV is compressible, spontaneous, phasic, competent, and demonstrates normal competent and demonstrates normal augmentation. augmentation. FV is compressible, spontaneous, phasic, competent and demonstrates normal augmentation. POP V is compressible, spontaneous, phasic, competent and demonstrates normal augmentation. T/P Trunk is compressible. PTV is compressible. RT PerV is compressible. Procedure This is a venous duplex using B-mode, color flow and spectral Doppler. Exam performed in department. The exam was diagnostic. A preliminary report was called and/or faxed to Dr. Schaffer. VL/Venous Duplex US, Unilateral Interpretation Summary Deep veins of the right lower extremity are patent and compressible segmentally . There is no evidence of right lower extremity deep vein thrombosis. Valvular competence karmen ears intact within the proximal deep venous system on the right . The right great saphenous vein a ppears patent and compressible segmentally. The left common femoral vein is patent and compressib le . Ordering Physician: Christy Schaffer Referring Physician: Alana Bedoya Performed By: Dominik Caban RVT
--- NOTE | 2024-01-17 12:05 | ED.VIS.LOWEX ---
HPI History of Present Illness Chief Complaint: Lower Extremity Injury Detail of Chief Complaint: Right leg pain Informant: patient Narrative Narrative: Patient presents with right leg pain that started last evening. She denies any injury. She was bowling yesterday but really does not recall injuring it at any point. Also had walked up and down some steps last evening. Patient states that she went to get in the bed and had sudden onset of pain in the back of her right leg. Kind of kept her up throughout the night. She did travel last month to [facility]. This was a short flight. No history of PE or DVT. She denies chest pain or shortness of breath. Denies any pain in her back. [facility] Medical History Acute gastroenteritis Anxiety and depression Asthma Contact with or exposure to other viral diseases Diabetes Fall Grief reaction Health care maintenance History of live Hyperlipemia Hypertension Incontinence Post-menopausal Right hand pain Right wrist pain Seasonal allergies Suprapubic discomfort Home Medications ?Medication ?Instructions ?Recorded ?Last Taken ?Type aspirin 81 mg tablet,delayed 81 mg PO DAILY 09/08/18 Unknown History release (Adult Low Dose Aspirin) cranberry 400 mg capsule 400 mg PO DAILY 09/08/18 Unknown History blood sugar diagnostic (OneTouch #100 ea 03/14/20 Unknown Rx Verio test strips) cholecalciferol (vitamin D3) 125 125 mcg PO BID 04/29/20 Unknown History mcg (5,000 unit) capsule elderberry fruit 200 mg capsule mg PO 04/29/20 Unknown History emz-fnp-zuxnxvda acid 1,000 ea PO 04/29/20 Unknown History mg-herbal 350 mg oral efferves powder pack (Airborne (ascorbic acid)) fluticasone propionate 110 2 puff inhalation BID 12/24/21 Unknown History mcg/actuation HFA aerosol inhaler metoprolol succinate 25 mg See Rx Instructions .Route 06/24/22 Unknown Rx tablet,extended release 24 hr .COMPLEX #90 tabs sertraline 50 mg tablet See Rx Instructions .Route 06/24/22 Unknown Rx .COMPLEX #90 tabs glimepiride 2 mg tablet See Rx Instructions .Route 10/01/22 Unknown Rx .COMPLEX #180 tabs pravastatin 80 mg tablet See Rx Instructions .Route 12/03/22 Unknown Rx .COMPLEX #90 tabs albuterol sulfate 90 mcg/actuation 2 puff inhalation Q6H PRN 12/08/22 Unknown Rx aerosol inhaler shortness of breath or wheezing #8.5 grams meloxicam 15 mg tablet mg PO 03/04/23 Unknown History zinc sulfate 25 mg zinc (110 mg) 25 mg PO DAILY 03/04/23 Unknown History tablet tirzepatide 2.5 mg/0.5 mL 2.5 mg subcut QWEEK 05/02/23 Unknown History subcutaneous pen injector (Mounjaro) Allergy/AdvReac Type Severity Reaction Status Date / Time loperamide (From Imodium A-D) Allergy Severe stop Verified 01/17/24 10:31 breathing Estrogens AdvReac Severe double Verified 01/17/24 10:31 vision Family History Mother Hypertension Hyperlipemia Kidney disease Father CVA (cerebral vascular accident) Respiratory disease COPD (chronic obstructive pulmonary disease) Sister Breast cancer Heart disease Surgical History History of bilateral breast biopsy History of bilateral breast reduction surgery History of colonoscopy (~06/2017) History of hysterectomy Social History Smoking Status: Never smoker alcohol intake: former substance use type: does not use what type of physical activity do you participate in: none ROS ROS ED Review of Systems ROS Unobtainable: other Constitutional Constitutional ED: Reports lethargy; Denies chills, fever(s), sweats or weight loss Eyes Eyes: Denies blurry vision, change in vision or diplopia ENT ENT ED: Denies rhinorrhea or sore throat Cardiovascular Cardiovascular: Denies chest pain, orthopnea or racing heartbeat Respiratory/Chest Respiratory/Chest: Denies cough, dyspnea, dyspnea on exertion, orthopnea or sputum Gastrointestinal Gastrointestinal: Denies abdominal pain, diarrhea, nausea or vomiting Genitourinary Genitourinary ED: Denies dysuria, hematuria or urinary frequency Musculoskeletal Musculoskeletal: Reports other Details: Right leg pain ; Denies arthralgias, back pain, myalgias or neck pain Integumentary Denies abscess, Abrasions or rash Neurologic Neurologic: Denies headache(s) or weakness Psychiatric Psychiatric: Denies anxiety, depression or suicidal thoughts Endocrine Endocrinology: Denies polydipsia, polyphagia or polyuria Hematologic/Lymphatic Hematologic/Lymphatic: Denies easy bleeding, easy bruising or lymphadenopathy Allergic/Immunologic Allergic/Immunologic ED: Denies mouth swelling, tongue swelling or urticaria EXAM Physical Exam Const Vital Signs: 01/17/24 10:30 01/17/24 10:31 01/17/24 12:29 Temperature 95.5 F L Temperature Source Temporal Pulse Rate 70 81 Respiratory Rate 19 H 18 Blood Pressure 139/65 H 130/78 H Blood Pressure Mean 89 95 Pulse Ox 97 98 Oxygen Delivery Method Room Air Room Air Positive well nourished and well developed General Appearance ED: well developed and NAD HEENT Reports TM's clear and moist mucous membranes normocephalic and atraumatic; Negative for trauma or tenderness Tympanic Membrane ED: Yes TM's clear Eyes PERRL and EOMs intact bilaterally General Eye ED: Negative for pale conjunctiva or scleral icterus Neck no lymphadenopathy, supple and no JVD General: Negative for tenderness Chest Wall inspection of chest normal and palpation of chest normal Chest: Negative for tenderness Resp normal respiratory effort and clear to auscultation bilaterally Effort and Inspection: Negative for respiratory distress or pain with movement Auscultation: Negative for rhonchi, wheezes or diminished lung sounds Cardio regular rate, regular rhythm, S1 normal heart sound, S2 normal heart sound and no murmurs Peripheral Pulses: pulses 2+ throughout GI normal to inspection, nondistended, normoactive bowel sounds, soft to palpation, non-tender, non-distended and no masses Back/Spine no CVA tenderness and no thoracic nor lumbar tenderness Extremity normal to inspection Extremity Narrative: Right leg-patient has no evidence of edema or erythema. Unable to reproduce her pain with palpation of the leg. No ropes or cords palpated. Negative Homans' sign. She has normal femoral, popliteal, dorsal pedal and posterior tibial pulses. Normal cap refill. Foot is warm to touch. Negative straight leg raises. Deep tendon reflexes plus 2 out of 4 bilaterally at the patella and Achilles. She has normal 5 extension bilaterally. Normal sensation to light touch. General Extremety ED: Negative for edema General Extremity: Negative for edema Neuro oriented x3, CN's II-XII intact bilaterally, no sensory deficits noted and gait normal Sensorium / Orientation: awake, alert, oriented to person, oriented to place and oriented to time Motor Exam: strength 5/5 throughout and strength abnormal Psych mental status grossly normal Skin no rashes or lesions noted and no wounds MDM MDM MDM Narrative Medical decision making narrative: Patient presents with atraumatic right leg pain. Recent travel. Concern for DVT by patient's daughter and patient. She denies any back pain and pain is really not reproducible. No red flag symptoms for cauda equina. Patient had a venous Doppler of the right lower extremity that was negative for DVT. This point spoke with patient and her daughter as etiology of her pain unclear. I do not feel x-rays are indicated as she is not having any bony pain. Patient does not want thing for pain for home. She does not want crutches. She will follow-up with her primary care physician. She will take ibuprofen or Tylenol for discomfort. Discharge Plan Triage Chief Complaint: Lower Extremity Injury ED Provider: Crhisty Schaffer Dx/Rx/DC Orders Clinical Impression: Leg pain, right Instructions: ED Pain, Acute, Uncertain Cause Prescriptions: No Action cranberry 400 mg capsule 400 mg PO DAILY aspirin [Adult Low Dose Aspirin] 81 mg tablet,delayed release (DR/EC) 81 mg PO DAILY cholecalciferol (vitamin D3) 125 mcg (5,000 unit) capsule 125 mcg PO BID elderberry fruit 200 mg capsule PO Airborne (ascorbic acid) 1,000-350 mg powder effervescent in packet PO fluticasone propionate 110 mcg/actuation HFA aerosol inhaler 2 puff inhalation BID albuterol sulfate 90 mcg/actuation HFA aerosol inhaler 2 puff inhalation Q6H PRN (Reason: shortness of breath or wheezing) Qty: 8.5 3RF zinc sulfate 25 mg zinc (110 mg) tablet 25 mg PO DAILY meloxicam 15 mg tablet PO Patient Comments: Take 1 tablet by mouth daily Mounjaro 2.5 mg/0.5 mL pen injector 2.5 mg subcut QWEEK (DME) OneTouch Verio test strips Strip See Rx Instructions .ROUTE .MEDSUPPLY Qty: 100 3RF Rx Instructions: check blood glucose daily for type 2 DM sertraline 50 mg tablet See Rx Instructions .ROUTE .COMPLEX Qty: 90 3RF Dose Instruction: TAKE 1 TABLET BY MOUTH DAILY Rx Instructions: TAKE 1 TABLET BY MOUTH DAILY metoprolol succinate 25 mg tablet extended release 24 hr See Rx Instructions .ROUTE .COMPLEX Qty: 90 3RF Dose Instruction: TAKE 1 TABLET BY MOUTH DAILY Rx Instructions: TAKE 1 TABLET BY MOUTH DAILY glimepiride 2 mg tablet See Rx Instructions .ROUTE .COMPLEX Qty: 180 3RF Dose Instruction: TAKE 1 TABLET BY MOUTH TWICE DAILY WITH BREAKFAST Rx Instructions: TAKE 1 TABLET BY MOUTH TWICE DAILY WITH BREAKFAST pravastatin 80 mg tablet See Rx Instructions .ROUTE .COMPLEX Qty: 90 3RF Dose Instruction: TAKE 1 TABLET BY MOUTH DAILY Rx Instructions: TAKE 1 TABLET BY MOUTH DAILY Primary Care Provider: Alana Bedoya Referrals: Alana Bedoya MD [Primary Care Provider] - 5-7 Days Print Language: [place] Disposition Disposition: Home, Self Care
[2024-01-17 12:29] VITALS: BP 130/78; PULSE 81; RESP 18; O2SAT 98
== END 2024-01-17 12:53 | disposition home or self-care (01) ==
PROVIDERS: Emergency Provider Emergency Medicine; PCP Family Medicine; Visit Provider Emergency Medicine
DX: M79.604 Pain in right leg (principal); E11.9 Type 2 diabetes mellitus without complications; I10 Essential (primary) hypertension; E78.5 Hyperlipidemia, unspecified; Z79.899 Other long term (current) drug therapy; Z79.82 Long term (current) use of aspirin; F41.8 Other specified anxiety disorders; J45.909 Unspecified asthma, uncomplicated; Z79.51 Long term (current) use of inhaled steroids; Z79.84 Long term (current) use of oral hypoglycemic drugs; Z79.85 Long-term (current) use of injectable non-insulin antidiabetic drugs; Z90.710 Acquired absence of both cervix and uterus
CPT/HCPCS: 93971; 99282

== ENCOUNTER → 2024-08-06 | Outpatient (CLI) | payer MEDICARE, BC, SELFPAY ==
--- NOTE | 2024-08-06 09:54 | BI_ITS ---
EXAM: SCRN MAMM (CAD)W/MAXINE BILAT 08/06/2024 CLINICAL HISTORY: F, Age 69 y/o , SCREENING TECHNIQUE: Bilateral Diagnostic digital breast tomosynthesis with 2D and 3D images. Computer aided detection. COMPARISON: Prior exam(s) dated 08/04/2023. FINDINGS: TISSUE DENSITY: The breast tissue is composed of scattered area of fibroglandular density. Bilateral Breast Mammographic Findings: No significant masses, calcifications or other abnormalities are identified. Benign secretory type calcifications and round calcifications are seen in both breasts. Partially obscured stable isodense masses are seen in both breasts. A radiopaque clip is seen in the left breast. The biopsy was benign. Post biopsy site is stable. BI/SCRN MAMM (CAD)W/MAXINE BILAT IMPRESSION: Right Breast: BIRADS 2 BENIGN FINDING. Left Breast: BIRADS 2 BENIGN FINDING. OVERALL FINAL ASSESSMENT: BIRADS 2 BENIGN FINDING. RECOMMENDATION: Routine annual follow-up in 1 Year A letter with findings and recommendations will be mailed to the patient. Reading Location: [id number]
== END | disposition home or self-care (01) ==
LOC: OPBI 09:52
PROVIDERS: PCP Family Medicine; Referring Provider Family Medicine; Visit Provider Family Medicine
DX: Z12.31 Encounter for screening mammogram for malignant neoplasm of breast (principal)
CPT/HCPCS: 77063; 77067

== ENCOUNTER → 2024-10-04 | Outpatient (CLI) | payer MEDICARE, BC, SELFPAY ==
--- NOTE | 2024-10-04 12:49 | RAD_ITS ---
PROCEDURE: KNEE 4 OR MORE VIEWS 10/04/2024 REASON FOR EXAM: KNEE PAIN TECHNIQUE: 4 view(s) of the right knee COMPARISON: None available FINDINGS: No fracture, dislocation or joint effusion. The joint spaces appear within limits. Soft tissues appear within limits. RAD/Knee 4 or More Views IMPRESSION: Study appears within limits. Reading Location: [id number]
== END | disposition home or self-care (01) ==
LOC: MTRAD 12:48
PROVIDERS: PCP Family Medicine; Referring Provider Family Medicine; Visit Provider Family Medicine
DX: M25.569 Pain in unspecified knee (principal)
CPT/HCPCS: 73564

== ENCOUNTER → 2024-11-20 | Outpatient (CLI) | payer MEDICARE, BC, SELFPAY ==
[2024-11-20 09:52] LABS: Hematocrit 42.8 % (37-47); Hemoglobin 14.2 g/dL (12.0-15.0); Immature Granulocytes Count 0.030 X10^3/uL (0.0-0.0); Mean Corp Hgb Conc 33.2 g/dL (32-36); Mean Corpuscular Volume 91.6 fL (81-99); Mean Platelet Vol. 10.8 fl (6.2-12.0); NRBC Flagged by Analyzer 0 % (0-5); POSITIVE DIFFERENTIAL YES; POSITIVE MORPHOLOGY YES; Platelet Count 186 K/mm3 (150-450); RBC Distribution Width CV 12.9 % (11.6-14.6); RBC Distribution Width SD 43.1 fl (35.1-43.9); Red Blood Count 4.67 M/mm3 (4.2-5.4); White Blood Count 12.4 K/mm3 (4.4-11.0)
[2024-11-20 09:56] LABS: Differential Indicated SCAN CRITERIA MET
[2024-11-20 12:33] LABS: AST(SGOT) 29 U/L (<=31); Alanine Aminotransfer ALT/SGPT 33 U/L (<=34); Albumin, Serum 4.2 g/dL (3.4-4.8); Alkaline Phosphatase 76 U/L (35-104); Anion Gap 11 (5-15); BUN 20 mg/dL (4-19); BUN/Creat Ratio 23.8 RATIO (10-20); Calcium,Total 9.9 mg/dL (7.6-11.0); Carbon Dioxide 23.1 mmol/L (21.0-32.0); Chloride 104 mmol/L (98-108); Cholesterol 139 mg/dL (<=200); Globulin 3.0 g/dL (2.2-4.2); Glucose 153 mg/dL (70-99); Low Density Lipoprotein Calc. 63 mg/dL; Potassium 4.5 mmol/L (3.3-5.1); Triglycerides 123 mg/dL; Very Low Density Lipoprotein 25 mg/dL (5-40); cholesterol:hdl ratio screen 2.69
== END | disposition home or self-care (01) ==
LOC: MTLAB 08:53
PROVIDERS: PCP Family Medicine; Referring Provider Family Medicine; Visit Provider Family Medicine
DX: E11.9 Type 2 diabetes mellitus without complications (principal); I10 Essential (primary) hypertension; E78.2 Mixed hyperlipidemia
CPT/HCPCS: 36415; 80053; 80061; 83036; 85025

== ENCOUNTER 2025-01-08 09:30 | Outpatient (RCR) | payer MEDICARE, BC, SELFPAY ==
--- NOTE | 2024-11-01 15:54 | HP.PTEVAL_ITS ---
Patient's Visit Information Visit Information Visit Information: CONNER LARSEN is a 69 year old F referred to Physical Therapy by Alana Bedoya MD with a diagnosis of R KNEE PAIN. Date of Evaluation: 11/01/24 Physical Therapist: Minal Lizarraga PT, Cert MDT Visit Plan Frequency: 2x /Week Duration: 4-6 Weeks Plan: AQUATIC THERAPY 2X'S WK X 4-6 WKS FOR KNEE PAIN RELIEF, LE ROM, STRETCHING AND STRENGTHENING TO HELP MEET SET GOALS. INCLUDE CORE STRENGTHENING AND HEP INSTRUCTION. FOCUS ON QUAD STRETCHING AND STRENGTHENING ALONG WITH HIP EXTENSOR STRENGTHENING. Subjective Subjective: THIS PATIENT PRESENTS TO PT WITH C/O R KNEE PAIN, SWELLING AND WEAKNESS. SHE STATES HER L KNEE IS STARTING TO HURT AGAIN TOO 0-5/10 FROM COMPENSTING FOR HER R KNEE PAIN. PATIENT ALSO REPORTS INTERMITTENT APPROX ONCE A WK SPASMS IN R FOOT AND INTERMITTENT TINGLING IN FIRST 2-3 TOES AT NIGHT. Present since: 3-4 MONTHS Pain Scale: WORST 7/10, LEAST 1/10 Currently: 2/10 Is it getting better, worse or staying the same: GETTING A LITTLE BETTER Commenced as a result of: NO APPARENT REASON Symptoms at onset: R KNEE PAIN AND SWELLING Worse: INITIATING GAIT AT NIGHT, INITIATING GAIT AFTER SITTING DURING THE DAY TOO, LAYING DOWN AT NIGHT AFTER A BUSY DAY IT THROBS, TRYING TO RAISER HELPER GRANDKIDS, PROLONGED WALKING, SHOPPING Better: RUBBING IT, ARTHRITIS RUB, EMU OIL, ESSENTIAL OILS, ANKLE EX'S Disturbed sleep: YES Previous history/Previous treatment: UNREMARKABLE Treatment this episode: NONE Gait: NONE RECENT Bowel or Bladder Dysfunction: NO Accidents: NO Unexplained weight loss: NO Imaging: RECENT R KNEE X-RAY - NORMAL PMH/Recent major surgery: H/O L KNEE PAIN TREATED WITH PHYSICAL THERAPY LAST YEAR SUCCESSFULLY. NIDDM. HTN. HIGH CHOLESTEROL. OTHER: LIVES ALONE. Objective Objective: THIS PATIENT AMBULATES INDEP'LY INTO PT LURCHING FROM SIDE TO SIDE AND WITH JOSE LE ER. SHE IS ABLE TO TRANSFER INDEP'LY FROM SIT TO STAND WITH HANDS ON KNEES BUT WITH DIFFICULTY AND C/O STRAIN ON KNEES. SHE HAS DIFFICULTY INITIATING THE FIRST FEW STEPS OF GAIT THEN HER GAIT SMOOTHS OUT. STEPS: SHE DEMO'S STEPS ONE AT A TIME WITH ONE HR LEADING DOWN WITH LLE. THIS PT INSTRUCTED PT IN LEADING DOWN WITH R TO PROTECT R WHICH DOES HELP DECREASE R KNEE PAIN BUT SHE STILL FEELS SOME PAIN IN THE LEFT. SHE IS ABLE TO ASCEND STEPS ONE A TIME LEADING WITH LLE AND ONE HR WITHOUT PAIN BUT NOT RECIPROCALLY. Sensory deficit: JOSE LE LIGHT TOUCH SENSATION IS GROSSLY INTACT AND SYMMETRICAL ROM deficit: R KNEE AROM IN SUPINE WITH HEEL SLIDE 0-0-135. L KNEE 0-0-137 DEG. TIGHTNESS IN JOSE HIP ER'S, QUADS AND CALVES. Motor deficit: R HIP 4-/5, KNEE EXT 4-/5, KNEE FLEX 4-/5, ANKLE 4/5. L HIP 4- /5, KNEE EXT 4/5, KNEE FLEX 4/5, ANKLE 4/5. Core strength: POOR. Palpation: MILD ACUTE TENDERNESS WITH PALPATION OF JOSE KNEE'S ALONG THE JOINT LINES MEDIALLY AND LATERALLY R>L AND THERE IS SWELLING OF THE R KNEE GREATER THAN LEFT BY ONE CM: GIRTH MEASUREMENTS - R JT LINE = 42.5 CM, L 41.5 CM. Special Tests R Knee Geronimo - Meniscus: Positive R Knee Octavia - ACL: Negative R Knee Anterior Drawer - ACL: Negative R Knee Posterior Drawer - PCL: Negative R Knee Valgus - MCL: Negative R Knee Varus - LCL: Negative R Knee Patellar Grind - PFS: Negative L Knee Octavia - ACL: Negative L Knee Anterior Drawer - ACL: Negative L Knee Posterior Drawer - PCL: Negative L Knee Valgus - MCL: Negative L Knee Varus - LCL: Negative L Knee Patellar Grind - PFS: Positive Balance/Special Test Scores Lower Extremity Functional Score: 32 Goals Goal 1:: DECREASE C/O R KNEE PAIN BY AT LEAST 50% TO EASE ADL'S (0-2/10). Goal Time Frame: 4-6 Weeks Goal 2:: PATIENT WILL BE ABLE TO TRANSFER SIT TO STAND FROM CHAIR WITHOUT UE ASSIST WITHOUT C/O R KNEE PAIN. Goal Time Frame: 4-6 Weeks Goal 3:: PATIENT WILL BE ABLE TO ASCEND AND DESCEND STEPS RECIPROCALLY WITH ONE HR WITHOUT LIMITATION OR C/O R KNEE PAIN. Goal Time Frame: 4-6 Weeks Goal 4:: INDEP WATER AND HEP Goal Time Frame: 4-6 Weeks Rehabilitation Potential Physical Therapy Diagnosis: JOSE KNEE PAIN, STIFFNESS AND WEAKNESS LIMITING MOBILITY. Rehabilitation Potential: Good Anticipated Interventions Patient/Client Instruction: Educate patient on: Condition, Plan of Care and Risk Factors For the Purpose of:: To improve self management Therapeutic Exercise to Include: Strength training, Flexibilty training, Gait and locomotor training, Neuromotor development, In an aquatic setting and Active ROM For the Purpose of:: To decrease pain, To decrease swelling/inflammation, To improve nutrient delivery to tissue, To improve muscle performance and motor function, To improve ability to perform ADL's, To increase tolerance to activity/condition/position, To improve ability of physical actions for home/community/work/leisure, To improve gait and locomotor functions, To increase flexibility/ROM and To improve self management Text: Thank you for the opportunity to evaluate your patient. For Medicare and Medicare HMO plans, please review the plan of care and approve it. It will need to be FAXED BACK to us at [phone] for Medicare purposes. For Medicare only, by signing this I certify the plan of care. Please let me know if there are questions or concerns regarding this plan of care. Physician Signature: Date:
--- NOTE | 2024-12-10 19:52 | HP.PTREVAL ---
Re-Evaluation Intro: Alana Bedoya MD, It has been my pleasure to treat CONNER LARSEN over the last 8 visits for R KNEE PAIN. Please see the progress note below for an update on the physical therapy plan of care! Subjective Subjective: PATIENT REPORTS SHE IS HAVING LESS KNEE PAIN AND SHE IS WALKING BETTER. SHE REPORTS THE POOL IS HELPING A LOT BUT SHE IS STILL HAVING TROUBLE ON THE STEPS. PATIENT REPORTS PAIN IS USUALLY RANGING 0-3/10 MOST OF THE TIME NOW BUT occasionally 5/10 last week on vacation. STATES SHE WENT ON VACATION [place] BUT SHE TRIED TO TAKE IT EASY AND RECOVERED QUICKER WHEN SHE COULD GET IN THE POOL. IT IS DOING SO MUCH BETTER SINCE STARTING THE POOL. PATIENT REPORTS THAT BEFORE SHE GETS AN MRI SHE WOULD LIKE TO TRY MORE WATER THERAPY BECAUSE IT IS HELPING SO MUCH. SHE REPORTS IT IS STILL CLICKING SOME. PATIENT DENIES ANY LOCKING UP OF HER KNEE. REPORTS SHE FLARED UP BOTH KNEES TUESDAY COMING DOWN THE RAMP OFF THE AIRPLANE BECAUSE IT WAS VERY STEEP. Objective Objective/Function: PATIENT WAS SEEN TODAY FOR RE-ASSESSMENT OF PROGRESS TOWARD THE SET PT GOALS AND THE NEED FOR FURTHER PHYSICAL THERAPY VS READINESS FOR DISCHARGE. THIS PATIENT IS MAKING GOOD PROGRESS WITH PT AND IS A GOOD CANDIDATE TO CONTINUE PT BASED ON PROGRESS MADE AND ROOM FOR FURTHER IMPROVEMENT AND RECENT FLARE UP ON VACATION. UPON EXAM TODAY: THIS PATIENT AMBULATES INDEP'LY INTO PT WITH MILD LURCHING FROM SIDE TO SIDE AND WITH JOSE LE ER BUT NOT LIMPING ON R LE. SHE IS ABLE TO TRANSFER INDEP'LY FROM SIT TO STAND WITH HANDS ON KNEES AND INITIATE GAIT WITHOUT HESITATION TODAY. STEPS: ASCENDS RECIP WITH ONE HR WITH GREATER DIFFICULTY LEADING UP WITH R LE THAN L. DESCENDS ONE AT A TIME BUT DIFFICULT LEADING DOWN WITH EITHER LEG. Sensory deficit: JOSE LE LIGHT TOUCH SENSATION IS GROSSLY INTACT AND SYMMETRICAL ROM deficit: R KNEE AROM IN SUPINE WITH HEEL SLIDE 0-0-136. L KNEE 0-0-137 DEG. TIGHTNESS IN JOSE HIP ER'S, QUADS AND CALVES. Motor deficit: R HIP 4-/5, KNEE EXT 4/5, KNEE FLEX 4/5, ANKLE 4/5. L HIP 4-/5, KNEE EXT 4/5, KNEE FLEX 4/5, ANKLE 4/5. Core strength: POOR. Palpation: R KNEE SWELLING IS IMPROVING SLOWLY. GIRTH MEASUREMENTS - R JT LINE = 42.1 CM, L 41.5 CM. Plan Plan Plan: CONT AQUATIC THERAPY 2X'S WK X 4-6 WKS FOR KNEE PAIN RELIEF, LE ROM, STRETCHING AND STRENGTHENING TO HELP MEET SET GOALS. INCLUDE CORE STRENGTHENING AND HEP INSTRUCTION. FOCUS ON QUAD STRETCHING AND STRENGTHENING ALONG WITH HIP EXTENSOR STRENGTHENING. Balance/Gait/Functional tests Balance/Special Test Scores Lower Extremity Functional Score: 32 Goals Goals Goal 1:: DECREASE C/O R KNEE PAIN BY AT LEAST 50% TO EASE ADL'S (0-2/10). Goal Time Frame: 4-6 Weeks Goal Progress: Progressing Goal 2:: PATIENT WILL BE ABLE TO TRANSFER SIT TO STAND FROM CHAIR WITHOUT UE ASSIST WITHOUT C/O R KNEE PAIN. Goal Time Frame: 4-6 Weeks Goal Progress: Progressing Goal 3:: PATIENT WILL BE ABLE TO ASCEND AND DESCEND STEPS RECIPROCALLY WITH ONE HR WITHOUT LIMITATION OR C/O R KNEE PAIN. Goal Time Frame: 4-6 Weeks Goal Progress: Progressing Goal 4:: INDEP WATER AND HEP Goal Time Frame: 4-6 Weeks Goal Progress: Progressing Anticipated Interventions Anticipated Interventions Patient/Client Instruction: Educate patient on: Condition, Plan of Care and Risk Factors For the Purpose of:: To improve self management Therapeutic Exercise to Include: Strength training, Flexibilty training, Gait and locomotor training, Neuromotor development, In an aquatic setting and Active ROM For the Purpose of:: To decrease pain, To decrease swelling/inflammation, To improve nutrient delivery to tissue, To improve muscle performance and motor function, To improve ability to perform ADL's, To increase tolerance to activity/condition/position, To improve ability of physical actions for home/community/work/leisure, To improve gait and locomotor functions, To increase flexibility/ROM and To improve self management Re-Evaluation Ending Re-evaluation ending: Please do not hesitate to contact me at [phone] by phone or if you have questions or concerns regarding this new plan of care! Sincerely, Minal Lizarraga, PT, Cert MDT
--- NOTE | 2025-01-11 12:13 | HP.PTDCSUM ---
Discharge Summary D/C summary: It has been my pleasure to treat CONNER LARSEN referred by Alana Bedoya MD, with the diagnosis of R KNEE PAIN for a total of 16 visit(s). Discharge Date: 01/11/25 Please see the following information for a summary of their discharge status. Subjective Subjective: PATIENT REPORTS HER MOBILITY IS A LOT BETTER. SHE STATES SHE FEELS STRONGER IN HER LEGS AND SHE DOESN'T LIMP NOW. SHE STATES SHE IS ACTUALLY GOING UP AND DOWN STEPS NORMALLY NOW AND SHE NEVER THOUGHT SHE WOULD BE ABLE TO DO THAT AGAIN. PATIENT REPORTS HER PAIN IS MANAGEABLE NOW RANGING 0-4/10. SHE REPORTS SHE IS READY TO CONTINUE WITH HER HOME AND WATER EX INDEP'LY. SHE REPORTS THAT PRIOR TO THERAPY SHE WAS CONSIDERING SHOTS BUT NOW SHE ISN'T. SHE STATES THE POOL HAS BEEN AN ANSWER TO PRAY AND I HIGHLY RECOMMEND IT. Pain R leg: Pain Intensity (Out of 10): 0 L knee: Pain Intensity (Out of 10): 0 Overall Improvement % Improvement: 80 Objective Objective/Function: PATIENT WAS SEEN TODAY FOR RE-ASSESSMENT OF PROGRESS TOWARD THE SET PT GOALS AND THE NEED FOR FURTHER PHYSICAL THERAPY VS READINESS FOR DISCHARGE. THIS PATIENT HAS MADE GREAT PROGRESS WITH PT AND IS NOW INDEP WITH BOTH HOME AND WATER EX PROGRAMS. SHE IS APPROPRIATE FOR AND AGREEABLE TO DISCHARGE AT THIS TIME. UPON EXAM TODAY: THIS PATIENT AMBULATES INDEP'LY INTO PT WITH NO GROSS DEVIATIONS NOTED. SHE IS ABLE TO TRANSFER INDEP'LY FROM SIT TO STAND WITHOUT UE ASSIST AND INITIATE GAIT WITHOUT HESITATION TODAY. STEPS: ASCENDS AND DESCENDS RECIPROCALLY WITH ONE HR WITHOUT LIMITATION. Motor deficit: JOSE LE'S 5/5 Core strength: [employer]IR[employer] MEASUREMENTS - R JT LINE = 41.0 CM, L 41.0 CM. Goals Goal 1:: DECREASE C/O R KNEE PAIN BY AT LEAST 50% TO EASE ADL'S (0-2/10). Goal Progress: Goal Met Goal 2:: PATIENT WILL BE ABLE TO TRANSFER SIT TO STAND FROM CHAIR WITHOUT UE ASSIST WITHOUT C/O R KNEE PAIN. Goal Progress: Goal Met Goal 3:: PATIENT WILL BE ABLE TO ASCEND AND DESCEND STEPS RECIPROCALLY WITH ONE HR WITHOUT LIMITATION OR C/O R KNEE PAIN. Goal Progress: Goal Met Goal 4:: INDEP WATER AND HEP Goal Progress: Goal Met Plan Plan: D/C D/C Information d/c sentence: If there are questions or concerns regarding this patient's physical therapy, please feel free to call me at [phone]. Thank you for the referral of this patient. Sincerely, Minal Lizarraga, PT, Cert MDT Balance/Gait/Functional tests Balance/Special Test Scores Lower Extremity Functional Score: 49 Improvement % Improvement: 80
== END 2025-01-08 19:00 | disposition home or self-care (01) ==
LOC: PT 09:30
PROVIDERS: PCP Family Medicine; Referring Provider Family Medicine; Visit Provider Family Medicine
DX: M25.562 Pain in left knee (principal)
CPT/HCPCS: 97113; 97162; 97530

== ENCOUNTER → 2025-05-14 | Outpatient (CLI) | payer MEDICARE, BC, SELFPAY | END | disposition home or self-care (01) | LOC: LABSPEC 11:09 | PROVIDERS: PCP Family Medicine; Referring Provider Family Medicine; Visit Provider Family Medicine | DX: N39.0 Urinary tract infection, site not specified (principal) | CPT/HCPCS: 87077; 87086; 87088; 87186 ==